=== PATIENT | female | born 1985 | race African-American/Black ===

== ENCOUNTER 2016-12-31 10:42 | Emergency (ER) | payer BC, OTHER ==
[2016-12-31 10:45] VITALS: BP 142/79; PULSE 63; RESP 18; TEMP 98.3
--- NOTE | 2016-12-31 11:04 | ED ---
General Adult HPI - General Chief complaint: Dental/Oral Stated complaint: DENTAL PAIN Time Seen by Provider: 12/31/16 10:53 Source: patient, RN notes reviewed Mode of arrival: ambulatory Limitations: no limitations - History of Present Illness Initial comments: 31-year-old female presents to the emergency department with a chief complaint of left-sided dental pain. Patient states she was chewing gum and she cracked her tooth. Patient [place]. Patient states she's been taking Tylenol and nausea with no improvement. Patient denies any fever or chills. She denies any radiation the neck or any difficulty opening or closing the mouth. Patient was concerned due to her symptoms so she thought that she should be evaluated. Patient was concerned so she thought that she should be seen. Her dentist is normally often dental. Patient denies any recent fever, chills, shortness of breath, chest pain, back pain, abdominal pain, nausea vomiting, numbness or tingling, dysuria or hematuria, constipation or diarrhea, headaches or visual changes, or any other current symptoms. - Related Data Previous Rx's Medication Instructions Recorded Hydrocodone/Acetaminophen [[place] 1 each PO Q4HR PRN #20 tab 08/25/13 5-325] Penicillin V Potassium [Pen Vee K] 500 mg PO BID #20 tab 08/25/13 Ibuprofen [Motrin] 600 mg PO Q6HR PRN #20 tab 12/31/16 Penicillin V Potassium [Pen Vee K] 500 mg PO TID #40 tab 12/31/16 Allergies Allergy/AdvReac Type Severity Reaction Status Date / Time acetaminophen Allergy Rash/Hives Verified 12/31/16 10:45 [From Darvocet-N 100] codeine Allergy Rash/Hives Verified 12/31/16 10:45 diphenhydramine HCl Allergy Rash/Hives Verified 12/31/16 10:45 [From Benadryl] propoxyphene napsylate Allergy Rash/Hives Verified 12/31/16 10:45 [From Darvocet-N 100] tramadol Allergy Rash/Hives Verified 12/31/16 10:45 Review of Systems ROS Statement: Those systems with pertinent positive or pertinent negative responses have been documented in the HPI. ROS Other: All systems not noted in ROS Statement are negative. Past Medical History Past Medical History: No Reported History History of Any Multi-Drug Resistant Organisms: None Reported Additional Past Surgical History / Comment(s): cyst removed from right foot Past Psychological History: No Psychological Hx Reported Smoking Status: Current every day smoker Past Alcohol Use History: None Reported Past Drug Use History: None Reported General Exam Limitations: no limitations General appearance: alert, in no apparent distress Eye exam: Present: normal appearance, PERRL, EOMI. Absent: scleral icterus, conjunctival injection, periorbital swelling ENT exam: Present: normal exam, mucous membranes moist, other (poor dentition throughout. Patient does appear to have a cracked tooth #18. HEENT multiple teeth multiple cavities noted.) Neck exam: Present: normal inspection. Absent: tenderness, meningismus, lymphadenopathy Respiratory exam: Present: normal lung sounds bilaterally. Absent: respiratory distress, wheezes, rales, rhonchi, stridor Cardiovascular Exam: Present: regular rate, normal rhythm, normal heart sounds. Absent: systolic murmur, diastolic murmur, rubs, gallop, clicks Neurological exam: Present: alert, oriented X3 Psychiatric exam: Present: normal affect, normal mood Skin exam: Present: warm, dry, intact, normal color. Absent: rash Course Vital Signs 12/31/16 10:43 Temperature 98.3 F Pulse Rate 63 Respiratory 18 Rate Blood Pressure 142/79 O2 Sat by Pulse 95 Oximetry Medical Decision Making - Medical Decision Making 31-year-old female presents for a broken tooth. This and we'll start her on antibiotics and medications for pain. We did discuss follow-up return parameters on the patient and family's questions. They stated they understood and they are in agreement. All patient's questions have been answered. This time they will be discharged. Disposition Clinical Impression: Dental caries, Fracture of tooth Disposition: HOME SELF-CARE Condition: Stable Instructions: Toothache (ED) Additional Instructions: Please use medication as discussed. Please follow up with family doctor if symptoms have not improved over the next two days. Please return to the emergency room if your symptoms increase or worsen or for any other concerns. [facility] [address] [employer] [place] [address] [phone] (existing clients only) For new clients: [phone] 1st consult: $50 (includes Xrays) Usually 30% less then private dentist for visits after. [employer] Have to pay $50 for Xrays anmd rest is covered. [phone] Prescriptions: Ibuprofen [Motrin] 600 mg PO Q6HR PRN #20 tab PRN Reason: Pain Penicillin V Potassium [Pen Vee K] 500 mg PO TID #40 tab Referrals: Sherin Alcaraz MD [STAFF PHYSICIAN] - 1-2 days Time of Disposition: 11:03
== END 2016-12-31 11:10 | disposition home or self-care (01) ==
LOC: EC 10:42
DX: S02.5XXA Fracture of tooth (traumatic), initial encounter for closed fracture (principal); K02.9 Dental caries, unspecified; R11.0 Nausea; Z88.5 Allergy status to narcotic agent; Z88.6 Allergy status to analgesic agent; Z88.8 Allergy status to other drugs, medicaments and biological substances; F17.200 Nicotine dependence, unspecified, uncomplicated; Y93.89 Activity, other specified
CPT/HCPCS: 99282

== ENCOUNTER 2017-06-30 15:14 | Emergency (ER) | payer BC ==
[2017-06-30 15:29] VITALS: BP 143/88; PULSE 105; RESP 18; TEMP 97.3
[2017-06-30] MEDS ORDERED: HYDROcodone/APAP 5-325MG 1 EACH TAB PO STA (15:37)
--- NOTE | 2017-06-30 15:39 | ED ---
ENT HPI - General Chief complaint: Dental/Oral Stated complaint: Dental pain Time Seen by Provider: 06/30/17 15:23 Source: patient Mode of arrival: ambulatory Limitations: no limitations - History of Present Illness Initial comments: 32-year-old female patient presents to the emergency department today for evaluation of right lower dental pain. Patient reports that she was chewing gum on Monday when she broke a tooth. Patient states she has been having significant pain to the tooth since that time. States that she has been taking Aleve and using Orajel without relief of symptoms. Patient denies any fevers or chills with this. Denies any nausea or vomiting. Denies any trismus. Patient denies any recent rash, shortness breath, chest pain, abdominal pain, diarrhea, constipation, back pain, numbness, tingling, dizziness, weakness, hematuria, dysuria, urinary urgency, urinary frequency, headache, visual changes , or any other complaints. - Related Data Previous Rx's Medication Instructions Recorded Hydrocodone/Acetaminophen [[place] 1 each PO Q4HR PRN #20 tab 08/25/13 5-325] Penicillin V Potassium [Pen Vee K] 500 mg PO BID #20 tab 08/25/13 Ibuprofen [Motrin] 600 mg PO Q6HR PRN #20 tab 12/31/16 Penicillin V Potassium [Pen Vee K] 500 mg PO TID #40 tab 12/31/16 Hydrocodone/Acetaminophen [[place] 1 tab PO Q6HR PRN #12 tab 06/30/17 5-325] Penicillin V Potassium [Pen Vee K] 500 mg PO Q6H #40 tablet 06/30/17 Allergies Allergy/AdvReac Type Severity Reaction Status Date / Time acetaminophen Allergy Rash/Hives Verified 06/30/17 15:23 [From Darvocet-N 100] codeine Allergy Rash/Hives Verified 06/30/17 15:23 diphenhydramine HCl Allergy Rash/Hives Verified 06/30/17 15:23 [From Benadryl] propoxyphene napsylate Allergy Rash/Hives Verified 06/30/17 15:23 [From Darvocet-N 100] tramadol Allergy Rash/Hives Verified 06/30/17 15:23 Review of Systems ROS Statement: Those systems with pertinent positive or pertinent negative responses have been documented in the HPI. ROS Other: All systems not noted in ROS Statement are negative. Past Medical History Past Medical History: No Reported History History of Any Multi-Drug Resistant Organisms: None Reported Past Surgical History: No Surgical Hx Reported Additional Past Surgical History / Comment(s): cyst removed from right foot Past Psychological History: No Psychological Hx Reported Smoking Status: Current every day smoker Past Alcohol Use History: None Reported Past Drug Use History: None Reported General Exam Limitations: no limitations General appearance: alert, in no apparent distress, other (Social well-developed , well-nourished adult female patient in no acute distress. Vital signs upon presentation are temperature 97.3F, pulse 105, respirations 18, blood pressure 143/88, pulse ox 95% on room air.) Eye exam: Present: normal appearance, PERRL, EOMI. Absent: scleral icterus, conjunctival injection, periorbital swelling ENT exam: Present: normal exam, normal oropharynx, mucous membranes moist, other (Patient has very poor dentition. Multiple broken teeth, right posterior tooth #31 is fractured with exposed pulp. There is surrounding gingival erythema and swelling. No evidence of drainable abscess.) Neck exam: Present: normal inspection. Absent: tenderness, meningismus, lymphadenopathy Respiratory exam: Present: normal lung sounds bilaterally. Absent: respiratory distress, wheezes, rales, rhonchi, stridor Cardiovascular Exam: Present: regular rate, normal rhythm, normal heart sounds. Absent: systolic murmur, diastolic murmur, rubs, gallop, clicks GI/Abdominal exam: Present: soft, normal bowel sounds. Absent: distended, tenderness, guarding, rebound, rigid Neurological exam: Present: alert, oriented X3, CN II-XII intact Psychiatric exam: Present: normal affect, normal mood Skin exam: Present: warm, dry, intact, normal color. Absent: rash Course Vital Signs 06/30/17 15:24 Temperature 97.3 F L Pulse Rate 105 H Respiratory 18 Rate Blood Pressure 143/88 O2 Sat by Pulse 95 Oximetry Medical Decision Making - Medical Decision Making 32-year-old female patient presented to the emergency department today for evaluation of right lower dental pain. Physical examination did reveal a broken tooth with exposed pulp. She did have surrounding erythema and swelling suggestive of early infection. We did prescribe penicillin and [place] for her pain. She is instructed to follow-up with dentistry as soon as possible, she reports she has appointment on Monday. She is instructed to return here immediately for any new, worsening, or concerning symptoms. She verbalizes understanding and agrees with this plan. Disposition Clinical Impression: Fractured tooth, Dental infection Disposition: HOME SELF-CARE Condition: Good Instructions: Dental Caries (ED), Toothache (ED) Additional Instructions: Take medications as directed. Follow-up with your dentist as soon as possible. Return here immediately for any new, worsening, or concerning symptoms. Prescriptions: Hydrocodone/Acetaminophen [[place] 5-325] 1 tab PO Q6HR PRN #12 tab PRN Reason: Pain Penicillin V Potassium [Pen Vee K] 500 mg PO Q6H #40 tablet Referrals: None,Stated [Primary Care Provider] - 1-2 days Time of Disposition: 15:39
== END 2017-06-30 15:51 | disposition home or self-care (01) ==
LOC: EC 15:14
DX: S02.5XXA Fracture of tooth (traumatic), initial encounter for closed fracture (principal); K04.7 Periapical abscess without sinus; F17.200 Nicotine dependence, unspecified, uncomplicated; Z88.5 Allergy status to narcotic agent; Z88.6 Allergy status to analgesic agent; Z88.8 Allergy status to other drugs, medicaments and biological substances; X58.XXXA Exposure to other specified factors, initial encounter; Y93.89 Activity, other specified
CPT/HCPCS: 99282